=== PATIENT | female | born 1985 | race African-American/Black ===

== ENCOUNTER 2016-12-10 11:21 | Emergency (ER) | payer OTHER ==
[2016-12-10 11:34] VITALS: BP 158/90; PULSE 105; TEMP 97.8; BMI 38.7
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
[2016-12-10] MEDS ORDERED: CYCLOBENZAPRINE HCL 10 MG TABLET (FP) PO ONE (12:29)
[2016-12-10] MEDS ORDERED: IBUPROFEN 600 MG TABLET (FP) PO ONE ×2 (12:29→12:35)
[2016-12-10] MEDS ORDERED: CYCLOBENZAPRINE HCL 10 MG TABLET (FP) ONE (12:35)
== END 2016-12-10 13:50 | disposition home or self-care (01) ==
LOC: JERFT 11:21
DX: S16.1XXA Strain of muscle, fascia and tendon at neck level, initial encounter (principal); S29.012A Strain of muscle and tendon of back wall of thorax, initial encounter; V44.6XXA Car passenger injured in collision with heavy transport vehicle or bus in traffic accident, initial encounter; Y92.414 Local residential or business street as the place of occurrence of the external cause; Y93.89 Activity, other specified
CPT/HCPCS: 72050-TC; 72070-TC; 84703; 99281-25

== ENCOUNTER 2020-06-16 15:54 | Emergency (ER) | payer OTHER ==
[2020-06-16 15:59] VITALS: BP 129/83; PULSE 80; TEMP 98; BMI 43.2
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
[2020-06-16] MEDS ORDERED: IBUPROFEN 600 MG TABLET (FP) PO ONE (17:07)
[2020-06-16] MEDS ORDERED: IBUPROFEN 400 MG TABLET (FP) PO ONE (17:13)
== END 2020-06-16 17:25 | disposition home or self-care (01) ==
LOC: JERFT 15:54
DX: S93.491A Sprain of other ligament of right ankle, initial encounter (principal)
CPT/HCPCS: 73562-TC-RT-FY; 73610-TC-RT-FY; 73630-TC-RT-FY; 99284-25